=== PATIENT | female | born 1965 | race Caucasian/White ===

== ENCOUNTER 2019-10-14 14:42 | Emergency (ER) | payer OTHER ==
[2019-10-14 15:54] VITALS: BP 132/93
--- NOTE | 2019-10-14 15:55 | UC ---
Back Pain HPI - HPI Summary HPI Summary: 54 year old female with recent fall, seen on 10/07 with normal X-rays, presents for continued pain. Patient states pain is now located left buttock with a "lump" felt that is quite painful. no loss of bowel/ bladder function, no numbness, tingling, no weakness of her lower legs. At work, very physical job, which is painful but patient states she is "tough" and gets through it. Denies other symptoms. no prior back injuries, surgeries. taking motrin for pain as needed, difficulty sleeping at night due to pain - History of Current Complaint Stated Complaint: LUMP UPPER BUTTOCK Time Seen by Provider: 10/14/19 15:49 Hx Obtained From: Patient Hx Last Menstrual Period: lmp 4-5 years ago ?: No Onset/Duration: Sudden Onset, Lasting Days - 10/04, Still Present Timing: Constant Severity Initially: Moderate Severity Currently: Moderate Pain Intensity: 5 Pain Scale Used: 0-10 Numeric Back Pain: Is Discrete @ - left buttock Aggravating Factor(s): Movement, Lifting, Bending Alleviating Factor(s): Rest, OTC Meds Associated Signs And Symptoms: Positive: Pain with Weight Bearing. Negative: Swelling, Redness, Bruising, Fever, Weakness, Numbness, Tingling, Abdominal Pain , Flank Pain, Bladder Incontinence, Bowel Incontinence, Weight Loss - Allergies/Home Medications Allergies/Adverse Reactions: Allergies Allergy/AdvReac Type Severity Reaction Status Date / Time cefaclor [From [facility]] Allergy Hives Verified 10/14/19 15:54 clarithromycin Allergy Hives Verified 10/14/19 15:54 Penicillins Allergy Unknown Verified 10/14/19 15:54 Reaction Details Sulfa (Sulfonamide Allergy Itching Verified 10/14/19 15:54 Antibiotics) enviromental Allergy Sneezing Uncoded 10/14/19 15:54 Home Medications: Home Medications Ibuprofen TAB* [Motrin TAB* 800 MG] 800 mg PO BID 10/14/19 [History Confirmed ] PMH/Surg Hx/FS Hx/Imm Hx Previously Healthy: Yes - Surgical History Surgical History: Yes Surgery Procedure, Year, and Place: tubal ligation. hernia x2. knee surgery. T&A. c section - Family History Known Family History: Positive: Cardiac Disease, Hypertension, Non-Contributory - Social History Occupation: Employed Full-time Alcohol Use: Occasionally Substance Use Type: None Smoking Status (MU): Former Smoker Type: Cigarettes Amount Used/How Often: 1/2 ppd Have You Smoked in the Last Year: Yes When Did the Patient Quit Smoking/Using Tobacco: 06/29 Household Exposure Type: Cigarettes Review of Systems All Other Systems Reviewed And Are Negative: Yes Motor: Positive: Negative Musculoskeletal: Positive: Arthralgia, Myalgia Neurological: Positive: Negative Psychological: Positive: Negative Is Patient Immunocompromised?: No Physical Exam Triage Information Reviewed: Yes Appearance: Well-Appearing, Well-Nourished, Pain Distress - mild Vital Signs: Initial Vital Signs Temp 98.4 F 10/14/19 15:48 Pulse 91 10/14/19 15:48 Resp 16 10/14/19 15:48 BP 132/93 10/14/19 15:48 Pulse Ox 100 10/14/19 15:48 Vital Signs Reviewed: Yes Eyes: Positive: Conjunctiva Clear ENT: Positive: Hearing grossly normal Musculoskeletal: Positive: Strength Intact - left lower leg, ROM Intact - left lower leg, No Edema, Other: - ~ 3cm nodule, painful to palpation over mid L buttock extending along glutues max. no ecchymosis seen. + TTP over L SI joint. Neurological: Positive: Alert, Other: - SITLT lower left leg. patellar reflexes 2+ b/l. Psychological Exam: Normal Skin Exam: Normal Back Pain Course/Dx - Course Course Of Treatment: lower back strain. reviewed x-rays, negatives - Prednisone- 30mg every day for 4 days to decrease inflammation, pain - Motrin as needed for pain - Flexeril 10mg as needed for muscle spasm, may cause drowsiness - GEntle stretching - Wear back brace at work to prevent further injury, limit lifting/ work duties as possible. - work note given - Differential Dx/Diagnosis Differential Diagnosis/HQI/PQRI: Strain, Sprain Provider Diagnosis: Strain of tendon of lower back, Contusion Discharge ED - Sign-Out/Discharge Documenting (check all that apply): Patient Departure All imaging exams completed and their final reports reviewed: No Studies - Discharge Plan Condition: Good Disposition: HOME Prescriptions: Cyclobenzaprine TAB* [Flexeril 10 MG TAB*] 10 mg PO TID PRN #3 tab PRN Reason: muscle spasm predniSONE 10 mg TAB [Deltasone 10 MG TAB*] 3 tab PO DAILY #12 tab Patient Education Materials: Low Back Strain (ED), Lower Back Exercises (ED), Core Strengthening Exercises (ED) Forms: *Work Release Referrals: Abe Frank NP [Primary Care Provider] - Additional Instructions: - Prednisone- 30mg every day for 4 days to decrease inflammation, pain - Motrin as needed for pain - Flexeril 10mg as needed for muscle spasm, may cause drowsiness - GEntle stretching - Wear back brace at work to prevent further injury, limit lifting/ work duties as possible. - work note given - Billing Disposition and Condition Condition: GOOD Disposition: Home
== END 2019-10-14 16:34 | disposition home or self-care (01) ==
LOC: UCCORT 14:42
DX: S39.012D Strain of muscle, fascia and tendon of lower back, subsequent encounter (principal); S30.0XXD Contusion of lower back and pelvis, subsequent encounter; W19.XXXD Unspecified fall, subsequent encounter; Z87.891 Personal history of nicotine dependence; Z88.1 Allergy status to other antibiotic agents; Z88.0 Allergy status to penicillin; Z88.2 Allergy status to sulfonamides; Z91.09 Other allergy status, other than to drugs and biological substances
CPT/HCPCS: 99212; G0463